=== PATIENT | male | born 1955 | race Caucasian/White ===

== ENCOUNTER 2022-02-27 15:52 | Outpatient (CLI) | payer OTHER, SELFPAY ==
[2022-02-27 20:01] LABS: Alanine Aminotransferase* 30 U/L (4-50); Creatinine* 1.8 mg/dL (0.5-1.5); Estimated Glomerular Filt Rate 41 ml/min
== END 2022-02-27 15:53 | disposition home or self-care (01) ==
PROVIDERS: PCP Internal Medicine; Visit Provider Internal Medicine
DX: M86.9 Osteomyelitis, unspecified (principal); F41.8 Other specified anxiety disorders
CPT/HCPCS: 82565; 84460

== ENCOUNTER 2022-03-10 16:11 | Outpatient (CLI) | payer OTHER, SELFPAY ==
[2022-03-10 17:09] LABS: Basophils Percent Auto 0.3 % (0.0-3.0); Eosinophils Percent Auto 1.6 % (0.0-7.0); Hematocrit 34.6 % (37.0-53.0); Hemoglobin* 11.2 gm/dL (13.5-17.5); Immature Granulocytes Abs Auto 0.01 K/uL (0.00-0.30); Lymphocytes Percent Auto 16.8 % (20-44); Mean Corpuscular HGB Conc 32 gm/dL (32-36); Mean Corpuscular Hemoglobin 30 pg (26-34); Mean Corpuscular Volume 93 fL (80-100); Monocytes Percent Auto 12.6 % (0.0-11.0); Neutrophils Percent Auto 68.4 % (42.0-72.0); Platelet Count* 253 K/uL (140-440); RDW Coefficient of Variation % 15.8 % (11.5-15.5); Red Blood Count 3.73 m/uL (4.30-5.90)
[2022-03-10 17:20] LABS: Albumin* 4.1 g/dL (3.3-5.0); Chloride* 94 mmol/L (96-114)
[2022-03-10 17:21] LABS: Potassium* 5.8 mmol/L (3.6-5.1); Sodium* 127 mmol/L (135-149)
[2022-03-10 17:22] LABS: Slide Review Reflex No
[2022-03-10 17:23] LABS: Aspartate Amino Transferase* 37 U/L (12-35); Carbon Dioxide* 20 mmol/L (20-32); Creatinine* 1.6 mg/dL (0.5-1.5); Estimated Glomerular Filt Rate 48 ml/min; Total Protein* 6.8 g/dL (6.0-8.3)
[2022-03-10 17:24] LABS: Alanine Aminotransferase* 29 U/L (4-50); Alkaline Phosphatase* 88 U/L (40-150); Blood Urea Nitrogen* 19 mg/dL (7-30); Calcium* 8.9 mg/dL (8.4-10.6); Glucose* 93 mg/dL (60-115)
[2022-03-10 17:28] LABS: Bilirubin Total* < 0.1 mg/dL (0.1-1.5)
== END 2022-03-10 16:12 | disposition home or self-care (01) ==
LOC: LAB 16:44
PROVIDERS: PCP Internal Medicine; Visit Provider Internal Medicine
DX: Z79.2 Long term (current) use of antibiotics (principal)
CPT/HCPCS: 36415; 80053; 84460; 85025

== ENCOUNTER 2022-03-13 09:07 | Outpatient (CLI) | payer OTHER, SELFPAY ==
[2022-03-13 11:19] LABS: Chloride* 95 mmol/L (96-114); Potassium* 4.7 mmol/L (3.6-5.1); Sodium* 128 mmol/L (135-149)
[2022-03-13 11:21] LABS: Creatinine* 1.3 mg/dL (0.5-1.5); Estimated Glomerular Filt Rate 61 ml/min
[2022-03-13 11:22] LABS: Alanine Aminotransferase* 35 U/L (4-50); Blood Urea Nitrogen* 23 mg/dL (7-30); Calcium* 8.9 mg/dL (8.4-10.6); Carbon Dioxide* 24 mmol/L (20-32); Glucose* 107 mg/dL (60-115)
== END 2022-03-13 09:08 | disposition home or self-care (01) ==
LOC: NFLDREF 09:08
PROVIDERS: PCP Internal Medicine; Visit Provider Internal Medicine
DX: M86.9 Osteomyelitis, unspecified (principal)
CPT/HCPCS: 80048; 84460

== ENCOUNTER 2022-03-24 10:55 | Outpatient (CLI) | payer OTHER, SELFPAY ==
[2022-03-24 12:39] LABS: Aspartate Amino Transferase* 29 U/L (12-35)
[2022-03-25 14:39] LABS: Chloride* 102 mmol/L (96-114); Potassium* 5.3 mmol/L (3.6-5.1); Sodium* 133 mmol/L (135-149)
[2022-03-25 14:42] LABS: Blood Urea Nitrogen* 29 mg/dL (7-30); Calcium* 9.4 mg/dL (8.4-10.6); Carbon Dioxide* 20 mmol/L (20-32); Creatinine* 1.6 mg/dL (0.5-1.5); Estimated Glomerular Filt Rate 48 ml/min; Glucose* 74 mg/dL (60-115)
== END 2022-03-24 10:56 | disposition home or self-care (01) ==
LOC: NFLDREF 10:56
PROVIDERS: PCP Internal Medicine; Visit Provider Internal Medicine
DX: I25.10 Atherosclerotic heart disease of native coronary artery without angina pectoris (principal); M86.9 Osteomyelitis, unspecified; E78.5 Hyperlipidemia, unspecified; F41.8 Other specified anxiety disorders; Z86.73 Personal history of transient ischemic attack (TIA), and cerebral infarction without residual deficits; I25.2 Old myocardial infarction; I73.9 Peripheral vascular disease, unspecified; G47.33 Obstructive sleep apnea (adult) (pediatric); I65.29 Occlusion and stenosis of unspecified carotid artery; I35.0 Nonrheumatic aortic (valve) stenosis; L72.3 Sebaceous cyst
CPT/HCPCS: 80048; 84450; 84460

== ENCOUNTER 2022-03-31 10:38 | Outpatient (RCR) | payer OTHER, SELFPAY ==
[2022-03-17 13:09] LABS: Basophils Percent Auto 0.5 % (0.0-3.0); Eosinophils Percent Auto 2.8 % (0.0-7.0); Hematocrit 31.8 % (37.0-53.0); Hemoglobin* 10.3 gm/dL (13.5-17.5); Immature Granulocytes Abs Auto 0.02 K/uL (0.00-0.30); Lymphocytes Percent Auto 17.9 % (20-44); Mean Corpuscular HGB Conc 32 gm/dL (32-36); Mean Corpuscular Hemoglobin 30 pg (26-34); Mean Corpuscular Volume 93 fL (80-100); Monocytes Percent Auto 15.9 % (0.0-11.0); Neutrophils Percent Auto 62.4 % (42.0-72.0); Platelet Count* 274 K/uL (140-440); RDW Coefficient of Variation % 15.8 % (11.5-15.5); Red Blood Count 3.43 m/uL (4.30-5.90); White Blood Count* 3.96 K/uL (4.50-11.00)
[2022-03-17 13:27] LABS: Slide Review Reflex No
[2022-03-17 14:24] LABS: Albumin* 3.9 g/dL (3.3-5.0); Chloride* 100 mmol/L (96-114); Potassium* 5.1 mmol/L (3.6-5.1); Sodium* 131 mmol/L (135-149)
[2022-03-17 14:27] LABS: Alanine Aminotransferase* 44 U/L (4-50); Alkaline Phosphatase* 81 U/L (40-150); Aspartate Amino Transferase* 32 U/L (12-35); Blood Urea Nitrogen* 27 mg/dL (7-30); Carbon Dioxide* 21 mmol/L (20-32); Creatinine* 1.5 mg/dL (0.5-1.5); Estimated Glomerular Filt Rate 51 ml/min; Glucose* 95 mg/dL (60-115); Total Protein* 6.6 g/dL (6.0-8.3)
[2022-03-17 14:28] LABS: Calcium* 9.2 mg/dL (8.4-10.6)
[2022-03-17 14:36] LABS: Bilirubin Total* < 0.1 mg/dL (0.1-1.5)
[2022-03-31 10:54] LABS: Basophils Absolute Auto 0.01 K/uL (0.00-0.30); Basophils Percent Auto 0.2 % (0.0-3.0); Eosinophils Absolute Auto 0.16 K/uL (0.00-0.50); Eosinophils Percent Auto 3.1 % (0.0-7.0); Hematocrit 30.3 % (37.0-53.0); Hemoglobin* 9.8 gm/dL (13.5-17.5); Immature Granulocytes Abs Auto 0.02 K/uL (0.00-0.30); Lymphocytes Percent Auto 15.5 % (20-44); Mean Corpuscular HGB Conc 32 gm/dL (32-36); Mean Corpuscular Hemoglobin 31 pg (26-34); Mean Corpuscular Volume 94 fL (80-100); Monocytes Percent Auto 10.7 % (0.0-11.0); Neutrophils Absolute Auto 3.61 K/uL (1.7-7.0); Neutrophils Percent Auto 70.1 % (42.0-72.0); Platelet Count* 230 K/uL (140-440); RDW Coefficient of Variation % 15.9 % (11.5-15.5); Red Blood Count 3.21 m/uL (4.30-5.90); White Blood Count* 5.15 K/uL (4.50-11.00)
[2022-03-31 10:58] LABS: Slide Review Reflex No
[2022-03-31 11:16] LABS: Albumin* 4.2 g/dL (3.3-5.0)
[2022-03-31 11:17] LABS: Chloride* 103 mmol/L (96-114); Potassium* 4.5 mmol/L (3.6-5.1); Sodium* 135 mmol/L (135-149)
[2022-03-31 11:19] LABS: Aspartate Amino Transferase* 53 U/L (12-35); Bilirubin Total* 0.2 mg/dL (0.1-1.5); Carbon Dioxide* 21 mmol/L (20-32); Creatinine* 1.6 mg/dL (0.5-1.5); Estimated Glomerular Filt Rate 48 ml/min
[2022-03-31 11:20] LABS: Alanine Aminotransferase* 49 U/L (4-50); Alkaline Phosphatase* 74 U/L (40-150); Blood Urea Nitrogen* 36 mg/dL (7-30); Calcium* 9.2 mg/dL (8.4-10.6); Glucose* 124 mg/dL (60-115); Total Protein* 7.1 g/dL (6.0-8.3)
== END 2023-03-26 11:50 | disposition home or self-care (01) ==
LOC: LAB 10:38
PROVIDERS: PCP Internal Medicine; Visit Provider Physician Assistant
DX: M86.18 Other acute osteomyelitis, other site (principal); Z79.2 Long term (current) use of antibiotics
CPT/HCPCS: 36415; 80053; 85025

== ENCOUNTER 2023-01-29 10:58 | Emergency (ER) | payer MEDICARE, SELFPAY ==
[2023-01-29] VITALS (37 sets, daily range): BP systolic 176–201; BP diastolic 74–95; PULSE 48–67; RESP 16; TEMP 36.1–36.4; O2SAT 93–97; BMI 28.9
--- NOTE | 2023-01-29 11:21 | ED.GENADULT ---
HPI - General Adult General Time Seen by Provider: 11:22 Date Seen: 01/29/23 Chief complaint: GI Bleed Stated complaint: gi bleed, lightheaded Time Seen by Provider: 01/29/23 11:21 Source: patient and RN notes reviewed Mode of arrival: ambulatory Limitations: no limitations History of Present Illness HPI narrative: 67yo male coming in accompanied by his with concern of GI bleeding. Had loose stool around 6am today, then has had 3 subsequent stools with bright red blood per rectum filling toilet. He states this current interval is the longest that he has not gone. Is feeling lightheaded but no chest pain or respiratory symptoms. Not having any abdominal pain. Notes that he had a GI bleed last year, about a year ago and was eventually transferred to [place]. He had orthopedic surgery here which was complicated by a upper GI bleed; had EGD done I believe 12/25/2021 during that hospitalization which showed a duodenal ulcer with a clot. The next day, had a near syncopal episode, cardiac enzymes were elevating and was subsequently transferred to [facility]. He had an emergent scope that found a Mercedes-Rodriges tear which was banded, this was in the setting of no vomiting. 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 He currently is on aspirin and Plavix. He believes his colonoscopy is up-to-date, unaware of any diagnosis of diverticulosis. He states this interval from the last bloody stool to now is the longest he has went and is not feeling like he has any urgency. Related Data Home Medications Medication Instructions Recorded Confirmed acetaminophen 500 mg tablet 1,000 mg PO TID PRN 02/27/22 01/29/23 aspirin 81 mg chewable tablet 1 tab PO DAILY 02/27/22 01/29/23 omega-3 fatty acids-fish oil 340 1 cap PO QDAY 02/27/22 01/29/23 mg-1,000 mg capsule (Fish Oil) rosuvastatin 40 mg tablet 40 mg PO DAILY 02/27/22 01/29/23 lisinopril 5 mg tablet 20 mg PO BID 04/21/22 01/29/23 metoprolol succinate 50 mg 75 mg PO DAILY 09/26/22 07/06/23 tablet,extended release 24 hr Previous Rx's Medication Instructions Recorded citalopram 20 mg tablet 20 mg PO QDAY #90 tabs 02/27/22 amoxicillin 500 mg capsule 2,000 mg (4 x 500 mg) PO ONCE #4 07/07/22 caps clopidogrel 75 mg tablet 75 mg PO DAILY #90 tabs 08/26/22 trazodone 100 mg tablet 100 - 150 mg (1 - 1.5 x 100 mg) PO 10/14/22 .HS PRN persistent insomnia #135 tabs ketoconazole 2 % shampoo 1 applic topical 2XW #120 mL 11/06/22 Allergies Allergy/AdvReac Type Severity Reaction Status Date / Time No Known Allergies Allergy Unknown Verified 01/29/23 11:09 Review of Systems Status of ROS: Reports: 6 or more systems reviewed and unremarkable except as noted in History and below [facility] Medical History (Updated 01/29/23 @ 15:03 by Es Mensah MD) Osteomyelitis of sternum ?M86.9 - Osteomyelitis, unspecified (ICD-10) Nonsustained ventricular tachycardia (2020) ?I47.2 - Ventricular tachycardia (ICD-10) History of upper gastrointestinal hemorrhage ?Z87.19 - Personal history of other diseases of the digestive system (ICD-10) Abscess of lung ?J85.2 - Abscess of lung without pneumonia (ICD-10) Surgical History (Updated 02/27/22 @ 15:22 by Sarah Marsh MD) Status post three vessel coronary artery bypass ?Z95.1 - Presence of aortocoronary bypass graft (ICD-10) History of total hip replacement ?Z96.649 - Presence of unspecified artificial hip joint (ICD-10) History of knee surgery (06/25/09) ?Z98.890 - Other specified postprocedural states (ICD-10) Closed fracture of nasal bone (03/17/12) ?S02.2XXA - Fracture of nasal bones, initial encounter for closed fracture (ICD-10) Social History (Updated 04/28/22 @ 15:11 by Lara Brumfield MD) Narrative: Works as a financial aid director. Minimal alcohol use. Smoking Status: Former smoker What tobacco products do you use: cigarettes Years smoked: 35 Smoking quit date/years: >15 years ago and cigars Do you use any of these nicotine containing products: None Second hand tobacco smoke exposure: No How often do you have a drink containing alcohol: 2-4 times a month How many standard drinks containing alcohol do you have on a typical day: 1 or 2 How often do you have six or more drinks on one occasion: Never AUDIT-C Alcohol total score: 2 Non-prescribed substance use: denies use Little interest or pleasure in doing things: not at all Feeling down, depressed, or hopeless: not at all service: No Exam Const: Vital Signs, click to edit/add: Vital Signs - 24 hr 01/29/23 11:07 01/29/23 11:08 01/29/23 11:10 Temperature 97.5 F L Pulse Rate 60 57 L Pulse Rate [Pulse Oximeter] 55 L Respiratory Rate 16 Blood Pressure 176/74 H Blood Pressure [Le ft Upper Arm] 176/74 H Pulse Oximetry 97 96 96 [facility] 01/29/23 11:15 01/29/23 11:30 01/29/23 11:31 Temperature Pulse Rate 67 56 L 54 L Pulse Rate [Pulse Oximeter] Respiratory Rate Blood Pressure 186/77 H Blood Pressure [Le ft Upper Arm] Pulse Oximetry 96 94 96 Oxygen Delivery Ri thod 01/29/23 11:45 01/29/23 12:00 01/29/23 12:04 Temperature Pulse Rate 52 L 50 L 55 L Pulse Rate [Pulse Oximeter] Respiratory Rate Blood Pressure 187/95 H Blood Pressure [Le ft Upper Arm] Pulse Oximetry 95 95 95 Oxygen Delivery Ri thod 01/29/23 12:05 01/29/23 12:15 01/29/23 12:30 Temperature Pulse Rate 52 L 53 L Pulse Rate [Pulse Oximeter] Respiratory Rate Blood Pressure Blood Pressure [Le ft Upper Arm] Pulse Oximetry 96 97 96 Oxygen Delivery Ri thod 01/29/23 12:32 01/29/23 12:33 01/29/23 12:45 Temperature Pulse Rate 52 L 51 L 55 L Pulse Rate [Pulse Oximeter] Respiratory Rate Blood Pressure 182/86 H Blood Pressure [Le ft Upper Arm] Pulse Oximetry 95 96 96 Oxygen Delivery Ri thod 01/29/23 13:00 01/29/23 13:02 01/29/23 13:03 Temperature Pulse Rate 51 L 53 L 51 L Pulse Rate [Pulse Oximeter] Respiratory Rate Blood Pressure 183/85 H Blood Pressure [Le ft Upper Arm] Pulse Oximetry 96 95 97 Oxygen Delivery Ri thod 01/29/23 13:15 01/29/23 13:17 01/29/23 13:30 Temperature Pulse Rate 53 L 54 L 62 Pulse Rate [Pulse Oximeter] Respiratory Rate Blood Pressure 189/89 H Blood Pressure [Le ft Upper Arm] Pulse Oximetry 97 96 97 Oxygen Delivery Ri thod 01/29/23 13:32 01/29/23 13:45 01/29/23 13:47 Temperature Pulse Rate 58 L 56 L 58 L Pulse Rate [Pulse Oximeter] Respiratory Rate Blood Pressure 201/94 H 189/89 H Blood Pressure [Le ft Upper Arm] Pulse Oximetry 96 94 94 [facility] 01/29/23 13:48 01/29/23 14:00 01/29/23 14:01 Temperature Pulse Rate 53 L 53 L 54 L Pulse Rate [Pulse Oximeter] Respiratory Rate Blood Pressure 190/91 H Blood Pressure [Le ft Upper Arm] Pulse Oximetry 93 93 95 Oxygen Delivery Ri thod 01/29/23 14:02 01/29/23 14:15 01/29/23 14:17 Temperature Pulse Rate 57 L 53 L 58 L Pulse Rate [Pulse Oximeter] Respiratory Rate Blood Pressure 186/91 H 184/95 H Blood Pressure [Le ft Upper Arm] Pulse Oximetry 95 96 95 [facility] 01/29/23 14:30 01/29/23 14:32 01/29/23 14:45 Temperature Pulse Rate 54 L 51 L 50 L Pulse Rate [Pulse Oximeter] Respiratory Rate Blood Pressure 184/81 H Blood Pressure [Le ft Upper Arm] Pulse Oximetry 93 95 97 [facility] 01/29/23 14:47 01/29/23 15:00 01/29/23 15:02 Temperature Pulse Rate 51 L 55 L 48 L Pulse Rate [Pulse Oximeter] Respiratory Rate Blood Pressure 191/88 H 183/81 H Blood Pressure [Le ft Upper Arm] Pulse Oximetry 96 96 97 [facility] Documenting provider has reviewed patient's vital signs: yes Common normals: no apparent distress, average body habitus, oriented x3, no limitations, healthy appearing, alert and well nourished General appearance: cooperative, comfortable, well kempt and well developed HENMT: Common normals: normocephalic, head/scalp atraumatic, hearing grossly normal bilaterally and external nose normal Head and scalp: normocephalic and atraumatic Face and sinus: normal facial exam Nose: external nose normal Eye: Common normals: PERRL, EOMs intact bilaterally, conjunctivae normal and no scleral icterus Conjunctiva: conjunctiva(e) normal Pupil: PERRL Neck & C-Spine: Common normals: full ROM, no lymphadenopathy, supple, no meningeal signs, no JVD and thyroid normal Thyroid: thyroid normal Resp: Common normals: normal respiratory effort, no retractions, no use of accessory muscles and clear to auscultation bilaterally Auscultation: clear to auscultation bilaterally Cardio: Common normals: no JVD, regular rate, regular rhythm, S1 normal heart sound, S2 normal heart sound, no gallops, no clicks and no murmurs Rate: regular rate Rhythm: regular rhythm Heart sounds: S1 normal and S2 normal GI: Common normals: Normal to inspection, nondistended, normoactive bowel sounds present, soft to palpation, non-tender, no hepatosplenomegaly and no masses Palpation: soft and no hepatosplenomegaly Neuro: Common normals: oriented x3 and moves all extremities Sensorium/orientation: alert Meningeal signs: no meningeal signs Psych: Appearance: well kempt Course Course Hospital Course: Patient has bright red blood per rectum, more likely a lower GI bleed but still consideration for a rapid upper GI bleed could be possible, certainly has a history of upper GI bleeding. Will initiate 2 IVs, have him on cardiac monitoring and pulse oximetry. I will start 1 L of IV fluids, 80 mg IV Protonix. He has not had any further bleeding and thus will hold on TXA. This could be considered if we see subsequent bleeding. We will do type and screen and appropriate blood work. Given his cardiac history, will get baseline EKG and troponin. He is presenting actually hypertensive. Given that there is no active bleeding that were seen at this time, will observe pressures for now. May need to consider transfer in this patient. Reevaluation(s) Time of Reevaluation #1: 12:04 Reevaluation #1: Have reviewed mildly elevated troponin at 0.19 with them, we will trend this. Patient is not having any chest discomfort at this time. He admits yesterday felt better but few days before that did have some right lower chest discomfort and mild shortness of breath, thought he had maybe pulled a muscle with golfing. He is not feeling that way now. Did review his hemoglobin level, they state that that is good in stable for him. Reviewed that I did call [place] at 11:59 a.m., they are on divert. Time of Reevaluation #2: 15:20 Reevaluation #2: Patient is transferring at this time. Had recent trip to the bathroom where he just produce urine and had gas. Just prior to transfer had small amount of blood mixed with stool. Repeat hemoglobin just recently is stable at 13.3, effectively no change. Repeat troponin was normal at 0.03. These can be further trended at [place], have no explanation other than a false-positive potentially for his initial troponin. He is stable for transfer to [place] at this time. Consultations Consultation #1: Spoke with Dr. Beard at 12:24 p.m. for Cardiology from [place]. He concurs that the GI bleed is the priority here. Continue to monitor the troponin and the patient but he would not intervene at this point. They will call me back with the hospitalist. Did speak with the hospitalist Dr. Chua. He accepts care. He agrees with observation of the blood pressure and no treatment at this time, particularly since patient is not having further bleeding. We will hold on TXA as well at this time. There is a 4-8 hour delay on transfer, will continue to be monitored here closely. Time: 12:57 Vital Signs Vital signs: Initial Vital Signs Pulse Rate 60 01/29/23 11:07 Pulse Oximetry 97 01/29/23 11:07 Vital Signs Pulse Rate 60 01/29/23 11:07 Pulse Oximetry 97 01/29/23 11:07 Temperature 97.5 F L 01/29/23 11:10 Pulse Rate 48 L 01/29/23 15:02 Respiratory Rate 16 01/29/23 11:10 Blood Pressure 183/81 H 01/29/23 15:02 Pulse Oximetry 97 01/29/23 15:02 Oxygen Delivery Method Room Air 01/29/23 11:10 Medical Decision Making Lab Data Lab results reviewed: Yes I reviewed the patient's lab results Labs: Lab Results 0701/29/23 01/29/23 Range/Units 11:31 11:37 14:52 WBC 6.48 (4.50-11.00) K/uL RBC 4.15 L (4.30-5.90) m/uL Hgb 13.3 L 13.3 L (13.5-17.5) gm/dL Hct 38.9 (37.0-53.0) % MCV 94 (80-100) fL MCH 32 (26-34) pg MCHC 34 (32-36) gm/dL RDW Coeff of Randell 13.3 (11.5-15.5) % Plt Count 188 (140-440) K/uL Neut % (Auto) 65.1 (42.0-72.0) % Lymph % (Auto) 17.9 L (20-44) % [place] % (Auto) 13.3 H (0.0-11.0) % Eos % (Auto) 3.2 (0.0-7.0) % Baso % (Auto) 0.3 (0.0-3.0) % Neut # (Auto) 4.22 (1.7-7.0) K/uL Lymph # (Auto) 1.20 (0.90-2.90) K/uL [place] # (Auto) 0.90 (0.00-0.90) K/UL Eos # (Auto) 0.21 (0.00-0.50) K/uL Baso # (Auto) 0.02 (0.00-0.30) K/uL Sodium 138 (135-149) mmol/L Potassium 3.8 (3.6-5.1) mmol/L Chloride 107 (96-114) mmol/L Carbon Dioxide 23 (20-32) mmol/L BUN 16 (7-30) mg/dL Creatinine 0.9 (0.5-1.5) mg/dL Estimated Creat Clear 70.30 Estimated GFR 94 ml/min Glucose 131 H (60-115) mg/dL Lactate 1.2 (0.5-1.9) mmol/L Calcium 8.9 (8.4-10.6) mg/dL Total Bilirubin 0.4 (0.1-1.5) mg/dL AST 30 (12-35) U/L ALT 44 (4-50) U/L Alkaline Phosphatase 46 (40-150) U/L Total Protein 6.7 (6.0-8.3) g/dL Albumin 4.0 (3.3-5.0) g/dL POC Troponin I 0.19 H 0.03 (0.01-0.04) ng/ml Blood Type AB Positive Antibody Screen NEGATIVE ECG Data Attestation: I personally reviewed and interpreted this ECG as follows: (Sinus bradycardia with first-degree AV block. LVH by voltage criteria in aVL with repolarization. Do see the definite flipped T-waves lead to V3 through V6 and 1 in aVL. Certainly 1 in aVL could be repolarization.) Critical Care Time Critical Care Time Critical Care Time: No Discharge Plan Discharge Clinical Impression: Elevated troponin, BRBPR (bright red blood per rectum) Patient Disposition: Xfer [facility] Discharge Location: [facility] Prescriptions: No Action metoprolol succinate 50 mg tablet extended release 24 hr 75 mg PO DAILY lisinopril 5 mg tablet 20 mg PO BID ketoconazole 2 % shampoo 1 applic topical 2XW Qty: 120 1RF aspirin 81 mg tablet,chewable 1 tab PO DAILY rosuvastatin 40 mg tablet 40 mg PO DAILY Fish Oil 340-1,000 mg capsule 1 cap PO QDAY acetaminophen 500 mg tablet 1,000 mg PO TID PRN citalopram 20 mg tablet 20 mg PO QDAY Qty: 90 3RF amoxicillin 500 mg capsule 2,000 mg PO ONCE Qty: 4 0RF Rx Instructions: 1 hour prior to dental appointment clopidogrel 75 mg tablet 75 mg PO DAILY Qty: 90 1RF trazodone 100 mg tablet 100 - 150 mg PO .HS PRN (Reason: persistent insomnia) Qty: 135 3RF Stand Alone Forms: MyHealth Info Instructions
[2023-01-29 11:44] LABS: Lactate* 1.2 mmol/L (0.5-1.9)
[2023-01-29 11:47] LABS: Basophils Absolute Auto 0.02 K/uL (0.00-0.30); Basophils Percent Auto 0.3 % (0.0-3.0); Eosinophils Absolute Auto 0.21 K/uL (0.00-0.50); Eosinophils Percent Auto 3.2 % (0.0-7.0); Hematocrit 38.9 % (37.0-53.0); Hemoglobin* 13.3 gm/dL (13.5-17.5); Immature Granulocytes Abs Auto 0.01 K/uL (0.00-0.30); Immature Granulocytes Pct Auto 0.2 %; Lymphocytes Percent Auto 17.9 % (20-44); Mean Corpuscular HGB Conc 34 gm/dL (32-36); Mean Corpuscular Hemoglobin 32 pg (26-34); Mean Corpuscular Volume 94 fL (80-100); Monocytes Percent Auto 13.3 % (0.0-11.0); Neutrophils Absolute Auto 4.22 K/uL (1.7-7.0); Neutrophils Percent Auto 65.1 % (42.0-72.0); Platelet Count* 188 K/uL (140-440); RDW Coefficient of Variation % 13.3 % (11.5-15.5); Red Blood Count 4.15 m/uL (4.30-5.90); White Blood Count* 6.48 K/uL (4.50-11.00)
--- OUTSIDE RECORDS SUMMARY | 2023-01-29 11:47 | XMS_ITS | Continuity of Care Document ---
Author Name Unknown Organization [facility] Address [address] [place] [address] Phone Care Team Providers Care Track Helper Name Role Phone Suraj Lai MD Unavailable Unavailable Procedures Procedure Date OFFICE/OUTPATIENT VISIT EST Phone Office/Outpatient Visit,[facility] 2020 Advance Directives Directive Yes / No Effective Date File Name No Information Encounters Encounter Description Practice Location Reason(s) For Visit Diagnoses Date Provider Providers Copied on Encounter [facility], [address], [facility] [place], [place], [id number] , [place] tel: [phone] No Information 1 Joelle Ruelas. [facility], [address], [address], [place], [place], [id number] , [place]. tel: [phone] OFFICE/OUTPA TIENT VISIT EST Phone [facility], [address], [facility] [place], [place], [id number] , [place] tel: [phone] [facility] - [facility] No Information 1 Joelle Ruelas. [facility], [address], [address], [facility] [place], [place], [id number] , [place]. tel: [phone] Referring Provider: David Hernandez, [facility] [address], [place], [address]. tel:[phone] Office/Outpa tient Visit,[facility], [facility], [address], [place], [id number] , [place] tel: [phone] [facility] - [facility] Specialty [place] Spondylolisthesis, lumbosacral regionLow back pain, unspecifiedOsteoarth ritis of hip 1 Kody Levine. [facility], [address], [place], [id number] , [place]. tel: [phone] Referring Provider: David Hernandez, [address], [place], [address]. tel:[phone] Family History Family Member Type Diagnosis Age At Onset No Information Payers Payer name Insurance type Covered constitution party ID Authoriza tineal(s) [employer] Individual [employer] Family Plans [id number] Social History Type Description Quantity Date Captured Comments Sex Male Smoking Status No Information Chief Complaint And Reason For Visit No Information Reason For Referral Reason For Referral No Information Plan Of Treatment Date Type Action Status No Information History Of Present Illness Encounter Date Complaint History Of Prese nt Illness No Information Functional Status Date Functional Assessmen t No Information Instructions Date Instruction Additional Infor mation No Information Assessments Type Assessment Date No Information Patient Care Teams Name Effective Dates (start - stop) Status Members No Information
[2023-01-29 11:55] LABS: Slide Review Reflex No
--- OUTSIDE RECORDS SUMMARY | 2023-01-29 11:55 | XMS_ITS | Continuity of Care Document ---
Author Name Unknown Organization [facility] Address [address] [place] [address] Phone Care Team Providers Care Frickertron Checker Name Role Phone Suraj Lai MD Unavailable Unavailable Procedures Procedure Date OFFICE/OUTPATIENT VISIT EST Phone Office/Outpatient Visit,[facility] 2020 Advance Directives Directive Yes / No Effective Date File Name No Information Encounters Encounter Description Practice Location Reason(s) For Visit Diagnoses Date Provider Providers Copied on Encounter [facility], [address], [facility] [place], [id number] , [place] tel: [phone] No Information [address] [facility], [address], [address], [place], [place], [id number] , [place]. tel: [phone] OFFICE/OUTPA TIENT VISIT EST Phone [facility], [address], [facility] [place], [id number] , [place] tel: [phone] [facility] - [facility] No Information [address] [facility], [address], [address], [facility] [place], [place], [id number] , [place]. tel: [phone] Referring Provider: David Hernandez, [facility] [address], [place], [address]. tel:[phone] Office/Outpa tient Visit,[place], [facility], [address], [place], [id number] , [place] tel: [phone] [facility] - [facility] Specialty [place] Spondylolisthesis, lumbosacral regionLow back pain, unspecifiedOsteoarth ritis of hip 1 Kody Levine. [facility], [address], [place], [id number] , [place]. tel: [phone] Referring Provider: David Hernandez, [address], [place], [address]. tel:[phone] Family History Family Member Type Diagnosis Age At Onset No Information Payers Payer name Insurance type Covered democrat ID Authoriza tineal(s) [employer] [id number] Social History Type Description Quantity Date [...]
[2023-01-29] MEDS: PANTOPRAZOLE SODIUM 40 MG INJ 80 MG IVP (12:03)
[2023-01-29] MEDS: 0.9 % SODIUM CHLORIDE 1000 ml 1,000 ML 500 ML IV (12:03)
[2023-01-29 12:06] LABS: Chloride* 107 mmol/L (96-114); Potassium* 3.8 mmol/L (3.6-5.1); Sodium* 138 mmol/L (135-149)
[2023-01-29 12:08] LABS: Aspartate Amino Transferase* 30 U/L (12-35); Bilirubin Total* 0.4 mg/dL (0.1-1.5); Carbon Dioxide* 23 mmol/L (20-32); Creatinine* 0.9 mg/dL (0.5-1.5); Estimated Glomerular Filt Rate 94 ml/min
[2023-01-29 12:09] LABS: Alanine Aminotransferase* 44 U/L (4-50); Alkaline Phosphatase* 46 U/L (40-150); Blood Urea Nitrogen* 16 mg/dL (7-30); Calcium* 8.9 mg/dL (8.4-10.6); Glucose* 131 mg/dL (60-115); Total Protein* 6.7 g/dL (6.0-8.3)
[2023-01-29 12:17] LABS: Troponin, Point-of-Care* 0.19 ng/ml (0.01-0.04)
--- NOTE | 2023-01-29 12:45 | ED.NURSE ---
pt resting comfortably , no complaints, pt notified of NPO status
--- NOTE | 2023-01-29 13:08 | ED.NURSE ---
Notified MD of elevated blood pressures. Order for Lorazepam 0.5mg IV PRN placed by .
[2023-01-29] MEDS: LORazepam 2 MG/ML inj 0.5 MG IVP (13:35)
--- NOTE | 2023-01-29 13:43 | ED.NURSE ---
pt c/o slight intermittent headache rated a 1 on a scale of 0-10, pt BP trending upward, ordered Ativan given for anxiety.
[2023-01-29] MEDS: LACTATED RINGERS 1000 ML 1,000 ML 125 ML IV (14:14)
--- NOTE | 2023-01-29 14:19 | ED.NURSE ---
pt voided, in bedside commode, with flatus, no BM
[2023-01-29 15:05] LABS: Hemoglobin* 13.3 gm/dL (13.5-17.5)
[2023-01-29 15:08] LABS: Troponin, Point-of-Care* 0.03 ng/ml (0.01-0.04)
--- NOTE | 2023-01-29 15:24 | ED.NURSE ---
PT report given to nurse at [facility], before leaving with EMS pt had a small bowel movement of bright red blood and brown stool. notified of stool and gave clearance to continue transfer. PT transferred via EMS to [id number] all belongings sent with.
== END 2023-01-29 15:29 | disposition short-term general hospital (02) ==
PROVIDERS: Emergency Provider Family Medicine; PCP Internal Medicine
DX: K62.5 Hemorrhage of anus and rectum (principal); R79.89 Other specified abnormal findings of blood chemistry
CPT/HCPCS: 36415; 80053; 83605; 84484; 85018; 85025; 86850; 86900; 86901; 93005; 94761; 96374; 96375; 99284; C9113; J2060; J7030; J7120

== ENCOUNTER 2023-01-29 15:18 | Outpatient (CLI) | payer MEDICARE, SELFPAY ==
--- OUTSIDE RECORDS SUMMARY | 2023-01-30 09:57 | XMS_ITS | Continuity of Care Document ---
Author Name Unknown Organization [facility] Address [address] [place] [address] Phone Care Team Providers Care Allergist/Md Name Role Phone Suraj Lai MD Unavailable Unavailable Procedures Procedure Date OFFICE/OUTPATIENT VISIT EST Phone Office/Outpatient Visit,[facility] 2020 Advance Directives Directive Yes / No Effective Date File Name No Information Encounters Encounter Description Practice Location Reason(s) For Visit Diagnoses Date Provider Providers Copied on Encounter [facility], [address], [facility] [place], [id number] , [place] tel: [phone] No Information 1 Joelle Ruelas. [facility], [address], [address], [place], [place], [id number] , [place]. tel: [phone] OFFICE/OUTPA TIENT VISIT EST Phone [facility], [address], [facility] [place], [id number] , [place] tel: [phone] [facility] - [facility] No Information 1 Joelle Ruelas. [facility], [address], [address], [facility] [place], [place], [address] , [place]. tel: [phone] Referring Provider: David Hernandez, [facility] [address], [place], [address]. tel:[phone] Office/Outpa tient Visit,[facility], [facility], [address], [place], [id number] , [place] tel: [phone] [facility] - [facility] Specialty [place] Spondylolisthesis, lumbosacral regionLow back pain, unspecifiedOsteoarth ritis of hip 1 Kody Levine. [facility], [address], [place], [id number] , [place]. tel: [phone] Referring Provider: David Hernandez, [address], [place], [address]. tel:[phone] Family History Family Member Type Diagnosis Age At Onset No Information Payers Payer name Insurance type Covered republican ID Authoriza tineal(s) [employer] Individual [employer] Plans [id number] Social History Type Description Quantity Date [...]
== END 2023-01-29 15:19 | disposition home or self-care (01) ==
LOC: AMB 01-30 09:55
PROVIDERS: PCP Internal Medicine; Visit Provider Emergency Medicine
DX: K92.1 Melena (principal)
CPT/HCPCS: A0425; A0434

== ENCOUNTER 2023-02-20 13:00 | Outpatient (CLI) | payer MEDICARE, SELFPAY ==
--- NOTE | 2023-02-20 06:41 | W.ANESCHARGE ---
Anesthesia Charges Start Date/Time Anesthesia Start Date: 02/20/23 Anesthesia Start Time: 14:10 Stop Date/Time Anesthesia Stop Date: 02/20/23 Anesthesia Stop Time: 14:37
--- NOTE | 2023-02-20 14:37 | W.ANESCHARGE ---
Anesthesia Charges Start Date/Time Anesthesia Start Date: 02/20/23 Anesthesia Start Time: 14:10 Stop Date/Time Anesthesia Stop Date: 02/20/23 Anesthesia Stop Time: 14:37
== END 2023-02-20 13:01 | disposition home or self-care (01) ==
LOC: OP CLINIC 13:01
PROVIDERS: PCP Internal Medicine; Visit Provider Internal Medicine
DX: K92.1 Melena (principal); K57.30 Diverticulosis of large intestine without perforation or abscess without bleeding; K62.5 Hemorrhage of anus and rectum
CPT/HCPCS: 45380; 811; 812; 88305; J2704